=== PATIENT | male | born 1985 | race Caucasian/White ===

== ENCOUNTER 2022-12-12 06:50 | Emergency (ER) | payer MEDICAID ==
[~2022-12-12] VITALS: Ht 182.9 cm; Wt 68.2 kg
[2022-12-12 07:06] VITALS: BP 115/83; PULSE 61; RESP 16; TEMP 97.1; O2SAT 99
[2022-12-12] MEDS ORDERED: acetaminophen 325mg tablet PO ONE (08:25)
[2022-12-12] MEDS ORDERED: aspirin 325mg tablet, delayed-release (Ecotrin) PO ONE (08:25)
[2022-12-12] MEDS ORDERED: ASPI-1264 PO (11:00)
[2022-12-12] MEDS ORDERED: FAMO-128 PO (11:00)
[2022-12-12] MEDS ORDERED: CYCL-1 PO (11:00)
[2022-12-12] MEDS ORDERED: [UNRECOGNIZED DRUG - OTHER] (11:00)
== END 2022-12-12 11:18 | disposition home or self-care (01) ==
LOC: ER 06:52
DX: M54.9 Dorsalgia, unspecified (principal); W19.XXXA Unspecified fall, initial encounter; Y93.89 Activity, other specified; Y92.89 Other specified places as the place of occurrence of the external cause; Y99.8 Other external cause status; Z88.8 Allergy status to other drugs, medicaments and biological substances
CPT/HCPCS: 72128; 72131; 99284